=== PATIENT | female | born 1975 | race Two or more races ===

== ENCOUNTER 2025-01-23 04:52 | Emergency (ER) | payer MEDICAID, SELFPAY ==
[2025-01-23 04:56] VITALS: BMI 32.5
[2025-01-23 05:54] VITALS: BP 178/91; PULSE 70; RESP 16; TEMP 36.9; O2SAT 96
--- NOTE | 2025-01-23 06:35 | XR_ITS ---
Examination: PA lateral chest 2 views TECHNIQUE: Upright PA lateral chest 2 views Date and time: January 23, 2025 0645 hours INDICATIONS: Coughing beginning 4 days ago. FINDINGS: Normal heart size Lungs are clear. The osseous structures are intact IMPRESSION: No active disease
--- NOTE | 2025-01-23 06:37 | EDNOTE_ITS ---
Upper Respiratory Inf. RME/HPI General Chief Complaint: Flu Like Symptoms Stated Complaint: PAINFULL COUGH SORE THROAT Time Seen by Provider: 01/23/25 06:16 Source: patient Arrival date/time: 01/23/25 04:52 49-year-old female with history of hypertension presents to the emergency room with a chief complaint of coughing, a sore throat and phlegm x 3 days. Mode of arrival: ambulatory Limitations: no limitations Related Data Home Medications ?Medication ?Instructions ?Recorded ?Confirmed benazepril 40 mg tablet 40 mg PO DAILY 02/02/2101/18 hydrochlorothiazide 25 mg tablet 25 mg PO QAM 02/02/21 02/02/21 lansoprazole 15 mg capsule,delayed 30 mg PO DAILY 01/1802/02/21 release (Prevacid 24Hr) metformin 1,000 mg tablet 1,000 mg PO BID 02/02/21 tramadol 50 mg tablet 50 mg PO [id number] PRN Insomni a 02/02/21 02/02/21 Previous Rx's ?Medication ?Instructions ?Recorded ondansetron HCl 4 mg tablet 4 mg PO Q8H PRN nausea and 02/02/21 (Zofran) vomiting #14 tabs hydrocodone 5 mg-acetaminophen 325 1 tab PO Q8H pain # 14 tabs 06/05/21 mg tablet cyclobenzaprine 7.5 mg tablet 7.5 mg PO TID #10 tabs 0 09/24/22 meloxicam 15 mg tablet 15 mg PO QDAY #14 tabs 09/24 meclizine 25 mg tablet 25 mg PO TID PRN dizziness # 30 tabs 10/07/22 amoxicillin 875 mg-potassium 1 tab PO BID 7 days #14 t abs 01/23/25 clavulanate 125 mg tablet ondansetron 4 mg disintegrating 4 mg PO Q8H PRN nausea and 01/23/25 tablet vomiting #14 tabs Allergies Allergy/AdvReac Type Severity Reaction Status Date / Time No Known Allergies Allergy Verified 06/05/21 08:12 Review of Systems Review of Systems Systems Reviewed: All systems reviewed, normal except as documented Constitutional Constitutional: Reports system reviewed and no additional complaints, except as documented, Denies fatigue, Denies fever(s), Denies headache(s) and Denies weakness Eyes Eyes: Reports system reviewed and no additional complaints, except as documented, Denies blurry vision and Denies change in vision ENT Ears, Nose, Mouth, and Throat: Reports system reviewed and no additional complaints, except as documented, Denies otalgia, Denies headache(s), Denies nasal congestion, Reports sore throat, Denies throat swelling and Denies vertigo Cardiovascular Cardiovascular: Reports system reviewed and no additional complaints, except as documented, Denies chest pain, Reports dyspnea and Denies dyspnea on exertion Respiratory Respiratory: Reports system reviewed and no additional complaints, except as documented, Denies chest congestion, Reports cough, Reports dyspnea, Denies dyspnea on exertion and Denies wheezing Gastrointestinal Gastrointestinal: Reports system reviewed and no additional complaints, except as documented, Denies abdominal pain, Denies cramping, Denies nausea and Denies vomiting Genitourinary Genitourinary: Reports system reviewed and no additional complaints, except as documented Musculoskeletal Musculoskeletal: Reports system reviewed and no additional complaints, except as documented and Denies back pain Integumentary/Breasts Skin/Breast: Reports system reviewed and no additional complaints, except as documented and Denies wounds Neurologic Neurologic: Reports system reviewed and no additional complaints, except as documented, Denies confusion, Denies headache(s), Denies lack of coordination, Denies vertigo and Denies weakness Psychiatric Psychiatric: Reports system reviewed and no additional complaints, except as documented, Denies anxiety, Denies confusion, Denies depression, Denies paranoia, Denies suicidal ideation and Denies tactile hallucinations Endocrine Endocrine: Reports system reviewed and no additional complaints, except as documented and Denies fatigue Hematologic/Lymphatic Hematologic/Lymphatic: Reports system reviewed and no additional complaints, except as documented and Denies lymphadenopathy Allergic/Immunologic Allergic/Immunologic: Reports system reviewed and no additional complaints, except as documented, Denies throat swelling, Denies urticaria and Denies wheezing Past Medical History Past Medical History CARDIAC: Positive Hypertension; Negative Cardiac Disorders or Congestive Heart Failure RESPIRATORY: Negative Chronic Obstructive Pulmonary Disease (COPD) or Asthma GENITOURINARY: Negative Renal Disease ENDOCRINE: Positive Endocrine Disorders and Diabetes Mellitus Type 2; Negative Diabetes Mellitus Type 1 HEMATOLOGIC: Negative Sickle Cell Disease PSYCHO/SOCIAL: Positive Anxiety Social History SMOKING STATUS: Former smoker ED Exam General Limitations: Present no limitations General appearance: Present alert and in no apparent distress Head Head exam: Present atraumatic Eye Eye exam: Present normal appearance, PERRL and EOMI ENT ENT exam: Present normal exam, normal oropharynx and mucous membranes moist Expanded ENT Exam Mouth exam: Present normal external inspection Teeth exam: Present normal inspection Throat exam: Present tonsillar erythema; Absent R peritonsillar mass, L peritonsillar mass or muffled voice Neck Neck exam: Present normal inspection, full ROM and trachea midline Chest Chest inspection: Present normal inspection and symmetric chest wall rise Respiratory Respiratory exam: Present normal lung sounds bilaterally Cardiovascular Cardiovascular exam: Present regular rate, normal rhythm and normal heart sounds Abdominal Exam Abdominal exam: Present soft and normal bowel sounds Extremities Exam Extremities exam: Present normal inspection and full ROM Back Exam Back exam: Present normal inspection and full ROM Neurological Exam Neurological exam: Present alert, oriented X3 and CN II-XII intact Psychiatric Psychiatric exam: Present normal affect and normal mood Skin Skin exam: Present warm, dry, intact and normal color Course Quality Measures none Orders Category Date Time Status Bedside COVID-19 Antigen Test NOW Care 01/23/25 06:35 Active Bedside Influenza A&B Antigen Test NOW Care 01/23/25 06:35 Active XR chest 2V Stat Exams 01/23/25 06:35 Completed Vital Signs Vital signs: Vital Signs Temperature 98.5 F 01/23/25 05:54 Pulse Rate 70 01/23/25 05:54 Respiratory Rate 16 01/23/25 05:54 Blood Pressure 178/91 H 01/23/25 05:54 Pulse Oximetry (%) 96 01/23/25 05:54 Oxygen Delivery Method Room Air 01/23/25 05:54 O2 saturation 96% within normal limits Upper Respiratory Infection MDM Narrative MDM Narrative:: 49-year-old female with history of hypertension presents to the emergency room with a chief complaint of coughing, a sore throat and phlegm x 3 days. Patient is hemodynamically stable and in no apparent distress Physical examination shows clear bilateral lung sounds with no wheezing or any abnormal breath sounds. The patient is afebrile not tachycardic not tachypneic. ENT examination shows a erythemic posterior pharynx with no exudates. There is a cobblestone appearance to the back of the pharynx X-ray of the chest was completed and was negative for any pneumonia. COVID-19 and influenza were negative Patient was discharged with antibiotics for pharyngitis Patient was discharged and educated to follow-up with primary care provider in the next 24 to 48 hours and return to the emergency room for any evidence of worsening signs or symptoms Patient data External records reviewed:: [facility] previous records Clinical information provided by:: patient Social determinants that could affect healthcare access:: none Patient has the following chronic illnesses:: No chronic illness How is presenting disease/condition affected by chronic disease/condition?: no chronic disease Evaluation data The following diagnostics were reviewed and interpreted by me:: lab results and radiology exam(s) Lab and/or radiology exams considered but not ordered:: Labs and radiology exams considered and ordered Interpretation Summary: Chest x-ray-no pneumonic infiltrates Medications / Prescriptions Medications or Prescriptions considered but not ordered:: Rx given Medication administrations:: Rx given Consultations Consultation(s) initiated? (list below): No Diagnosis Upper Respiratory Differential Diagnosis: upper respiratory infection, sinusitis, viral infection, bronchitis, influenza, pharyngitis and other (Community-acquired pneumonia) Most likely diagnosis given after review of the tests above:: Pharyngitis Admission Indicated Admission indicated?: not indicated Admission Request Was there a request for admission?: No Disposition Plan Disposition Plan: Discharge Discharge Attestation Discharge Attestation: The patient and all family members were given an opportunity to ask questions and understood the discharge instructions. Discharge instructions specifically effects, indications for sooner follow up or return to the emergency department, and the expected course of current diagnosis. Patient condition: Stable Discharge Plan Plan Patient Disposition: HOME (Self Care) Discharge Disposition comment: Stable Prescriptions/Referrals Prescriptions/Med Rec: New ondansetron 4 mg tablet,disintegrating 4 mg PO Q8H PRN (Reason: nausea and vomiting) Qty: 14 0RF amoxicillin-pot clavulanate 875-125 mg tablet 1 tab PO BID 7 Days Qty: 14 0RF No Action hydrocodone-acetaminophen 5-325 mg tablet 1 tab PO Q8H MDD 3 Qty: 14 0RF tramadol 50 mg tablet 50 mg PO [id number] PRN (Reason: Insomnia) Patient Comments: TAKE 1 TABLET BY MOUTH EVERY 6 HOURS NEEDED metformin 1,000 mg tablet 1,000 mg PO BID Patient Comments: TAKE 1 TABLET BY MOUTH TWICE A DAY WITH MEALS lansoprazole [Prevacid 24Hr] 15 mg capsule,delayed release(DR/EC) 30 mg PO DAILY Patient Comments: TAKE 2 CAPSULES BY MOUTH EVERY DAY hydrochlorothiazide 25 mg tablet 25 mg PO QAM Patient Comments: TAKE 1 TABLET BY MOUTH EVERY DAY benazepril 40 mg tablet 40 mg PO DAILY Patient Comments: TAKE 1 TABLET BY MOUTH EVERY DAY ondansetron HCl [Zofran] 4 mg tablet 4 mg PO Q8H PRN (Reason: nausea and vomiting) Qty: 14 0RF cyclobenzaprine 7.5 mg tablet 7.5 mg PO TID Qty: 10 0RF meloxicam 15 mg tablet 15 mg PO QDAY Qty: 14 0RF meclizine 25 mg tablet 25 mg PO TID PRN (Reason: dizziness) Qty: 30 0RF Referrals: Eyal Odom MD [Primary Care Provider] - In 1 week Problem List Clinical Impression: Upper respiratory infection, Pharyngitis Patient/Caregiver Discharge Instructions Education Materials: ED Upper Resp Infec Abx Tx Additional Instructions: Please follow-up with your primary care provider in the next 24 to 48 hours Antibiotics are sent to your pharmacy please pick them up and take them as indicated Your chest x-ray was negative for any pneumonia For any evidence of worsening signs or symptoms return to the emergency room immediately Print Language: Cuban Stand Alone Forms: Talya Award Info., Work/School Release, Patient Portal Info Letter PA/ADVISORY SOFTWARE ENGINEER Supervising Physician PA/SAILAJA Supervising Physician: Dr. Ernandez
== END 2025-01-23 10:49 | disposition home or self-care (01) ==
PROVIDERS: Emergency Provider Emergency Medicine; PCP Family Medicine
DX: J02.9 Acute pharyngitis, unspecified (principal); Z87.891 Personal history of nicotine dependence
CPT/HCPCS: 71046; 87400; 87811; 99283

== ENCOUNTER 2025-03-17 21:35 | Emergency (ER) | payer MEDICAID, SELFPAY ==
[2025-03-17 21:37] VITALS: BMI 34.2
[2025-03-17 22:33] VITALS: BP 197/109; BP 210/104; PULSE 98; RESP 19; TEMP 37.2; O2SAT 99
--- NOTE | 2025-03-17 22:34 | EKG_ITS ---
[facility] Test Date: 2025-03-17 Pat Name: LISSETH PATRICIO Department: Room: - Gender: Female Technology Intern: : 1975 Requested By: Kendy Peters Order Number: [id number] Reading MD: Kendy Peters Measurements Intervals Holt Rate: 56 P: 19 WY: 162 QRS: -24 QRSD: 97 T: 21 QT: 427 QTc: 415 Interpretive Statements SINUS BRADYCARDIA BORDERLINE LEFT AXIS DEVIATION [QRS AXIS < -20] Compared to ECG 09/24/2022 11:23:44 Sinus rhythm no longer present /store/[id number].pdf
--- NOTE | 2025-03-17 22:35 | PD.EDABDPN ---
ED Abdominal Pain RME/HPI General Chief Complaint: Abdominal Pain Stated complaint: EPIGASTRIC PAIN,N/V Time seen by provider: 03/17/25 22:32 Arrival date/time: 03/17/25 21:35 Limitations: no limitations RME / HPI RME / HPI narrative: Dr. Garnett's Main ED Evaluation: 50yo female presents to the ED for complaints of epigastric pain, nausea, and vomiting for the last 2 hours. No radiation or migration. Patient states she recently restarted taking all of her medications. Patient reports associated shortness of breath when she vomits. he denies any diarrhea, fever, chills or any other associated symptoms. She denies any previous abdominal surgeries. Patient does smoke marijuana. Related Data Home Medications ?Medication ?Instructions ?Recorded ?Confirmed benazepril 40 mg tablet 40 mg PO DAILY 02/02/21 02/02/21 hydrochlorothiazide 25 mg tablet 25 mg PO QAM 02/02/21 02/02/21 lansoprazole 15 mg capsule,delayed 30 mg PO DAILY 02/02/21 02/02/21 release (Prevacid 24Hr) metformin 1,000 mg tablet 1,000 mg PO BID 02/02/21 02/02/21 tramadol 50 mg tablet 50 mg PO [id number] PRN Insomnia 02/02/21 02/02/21 Previous Rx's ?Medication ?Instructions ?Recorded ondansetron HCl 4 mg tablet 4 mg PO Q8H PRN nausea and 02/02/21 (Zofran) vomiting #14 tabs hydrocodone 5 mg-acetaminophen 325 1 tab PO Q8H pain #14 tabs 06/05/21 mg tablet cyclobenzaprine 7.5 mg tablet 7.5 mg PO TID #10 tabs 09/24/22 meloxicam 15 mg tablet 15 mg PO QDAY #14 tabs 09/24/22 meclizine 25 mg tablet 25 mg PO TID PRN dizziness #30 tabs 10/07/22 ondansetron 4 mg disintegrating 4 mg PO Q8H PRN nausea and 01/23/25 tablet vomiting #14 tabs ondansetron 4 mg disintegrating 4 mg PO Q8H PRN nausea and 03/18/25 tablet vomiting #10 tabs Allergies Allergy/AdvReac Type Severity Reaction Status Date / Time No Known Allergies Allergy Verified 03/17/25 21:36 Review of Systems Review of Systems Systems Reviewed: All systems reviewed, normal except as documented Past Medical History Past Medical History CARDIAC: Positive Hypertension; Negative Cardiac Disorders or Congestive Heart Failure RESPIRATORY: Negative Chronic Obstructive Pulmonary Disease (COPD) or Asthma GENITOURINARY: Negative Renal Disease ENDOCRINE: Positive Endocrine Disorders and Diabetes Mellitus Type 2; Negative Diabetes Mellitus Type 1 HEMATOLOGIC: Negative Sickle Cell Disease PSYCHO/SOCIAL: Positive Anxiety Social History SMOKING STATUS: Never smoker ED Exam General Limitations: Present no limitations General appearance: Present alert and in no apparent distress Head Head exam: Present atraumatic Eye Eye exam: Present normal appearance, PERRL and EOMI ENT ENT exam: Present normal exam, normal oropharynx and mucous membranes dry Neck Neck exam: Present normal inspection, full ROM and trachea midline Chest Chest inspection: Present normal inspection and symmetric chest wall rise Respiratory Respiratory exam: Present other (mild rhonchi bilaterally) Cardiovascular Cardiovascular exam: Present regular rate, normal rhythm and normal heart sounds Abdominal Exam Abdominal exam: Present soft and guarding; Absent rebound Extremities Exam Extremities exam: Present normal inspection and full ROM Back Exam Back exam: Present normal inspection and full ROM Neurological Exam Neurological exam: Present alert, oriented X3 and CN II-XII intact Psychiatric Psychiatric exam: Present normal affect and normal mood Skin Skin exam: Present warm, dry, intact and normal color; Absent diaphoresis Course Quality Measures none Orders Category Date Time Status CT Screening NOW Care 03/18/25 00:21 Completed EKG (ED ONLY) *Do not use* NOW Care 03/17/25 22:35 Completed IV [Insert IV] STAT Care 03/17/25 22:[address] abdomen pelvis w con Stat Exams 03/18/25 00:21 Completed EKG (ED Only) Stat Exams 03/17/25 22:34 Draft BNP [B-Type Natriuretic Peptide] Stat Lab 03/17/25 22:45 Completed CBC Stat Lab 03/17/25 22:45 Completed CMP [Comprehensive Metabolic Panel] Stat Lab 03/17/25 22:45 Completed Drug Screen,Urine Stat Lab 03/17/25 22:56 Completed HCG,Qualitative Serum Stat Lab 03/18/25 00:00 Completed Lipase Stat Lab 03/17/25 22:45 Completed Troponin I Stat Lab 03/17/25 22:45 Completed Urinalysis Stat Lab 03/17/25 22:56 Completed Ondansetron Odt [Zofran Odt] Med 03/17/25 22:37 Discontinued 4 mg PO X1 ONE Sodium Chloride 0.9% 1000 ml [Ns] 1,000 ml Med 03/17/25 22:37 Discontinued IV 999 mls/hr Vital Signs Vital signs: Vital Signs Temperature 99 F 03/17/25 22:33 Pulse Rate 98 03/17/25 22:33 Respiratory Rate 19 03/17/25 22:33 Blood Pressure 197/109 H 03/17/25 22:33 Pulse Oximetry (%) 99 03/17/25 22:33 Oxygen Delivery Method Room Air 03/17/25 22:33 Abdominal Pain MDM MDM Narrative MDM Narrative:: 50-year-old female presenting to the department with vomiting after marijuana use today On arrival the patient does have elevated blood pressure without headache, chest pain, or shortness of breath. The patient does have epigastric pain. EKG shortness of like to elevation Patient data External records reviewed:: [facility] previous records (Per chart review, patient was seen here on 01/23/25 for pharyngitis.) Clinical information provided by:: patient Social determinants that could affect healthcare access:: substance use (marijuana use) Patient has the following chronic illnesses:: DM, HTN How is presenting disease/condition affected by chronic disease/condition?: uneffected by Evaluation data The following diagnostics were reviewed and interpreted by me:: lab results and EKG tracing(s) Lab and/or radiology exams considered but not ordered:: none Interpretation Summary: WBC 17.8, Total Bilirubin 1.8, Troponin normal, BNP normal, Lipase 78, UA negative, UDS positive for marijuana, HCG negative. EKG done at 2238, sinus bradycardia, rate of 56, low voltage, ME: 162, QTc: 415, no STEMI, according to my interpretation. --------- Telerad Preliminary Report Draft Patient: LISSETH PATRICIO [facility]. Record#: [id number] Birthdate: 1975 Age/Sex: 50 / F Location: [facility] Attending Dr: Ordering Physician: Date of Service: Procedure(s): Accession Number(s): cc: ~ CT scan of the abdomen and pelvis with intravenous contrast (axial sections with sagittal and coronal reformats) March 18, 2025 at 0328 hours Clinical History: 50-year-old female with epigastric pain, vomiting. Comparison: None available at the time of this report. Findings: The lung bases are clear. The liver, gallbladder, spleen, kidneys and adrenals are unremarkable. Peripancreatic fat stranding. No pancreatic duct dilation. No collections. No evidence of bowel obstruction. The appendix is within normal limits. There is no mesenteric or retroperitoneal adenopathy. The urinary bladder is unremarkable. There is no free fluid or free air. The uterus and ovaries are within normal limits. Degenerative changes of the imaged portions of the spine. No acute fractures. Impression: Acute pancreatitis. No focal fluid collection. Report Electronically Signed By: Denis Reyes 03/18/2025 5:06:47 AM Medications / Prescriptions Medications or Prescriptions considered but not ordered:: none Medication administrations:: Medication Administration History Discontinued Medications Sodium Chloride (Ns) 1,000 mls @ 999 mls/hr IV .Q1H1M ONE Stop: 03/17/25 23:37 Last Infusion: 03/18/25 01:22 Dose: Infused Documented By: Admin: 03/18/25 00:03 Dose: 999 mls/hr Documented By: OA Ondansetron HCl (Ondansetron Odt 4 Mg Tabrap) 4 mg PO X1 ONE; Protocol Stop: 03/17/25 22:38 Last Admin: 03/17/25 22:47 Dose: 4 mg Documented By: CVL see above Consultations Consultation(s) initiated? (list below): No Diagnosis Differential diagnosis abdominal pain: diverticulitis, pancreatitis and other (cholelithiasis, cholecystitis) Most likely diagnosis given after review of the tests above:: see clinical impression below Admission Indicated Admission indicated?: indicated Explain why admission is indicated or not indicated:: Recommended inpatient management, but patient is tolerating PO fluids and her pain has resolved. Requests outpatient trial. Admission Request Was there a request for admission?: No Disposition Plan Disposition Plan: Discharge Discharge Attestation Discharge Attestation: The patient and all family members were given an opportunity to ask questions and understood the discharge instructions. Discharge instructions specifically effects, indications for sooner follow up or return to the emergency department, and the expected course of current diagnosis. Patient condition: Stable Discharge Plan Plan Patient Disposition: HOME (Self Care) Patient condition on transfer: Stable Prescriptions/Referrals Prescriptions/Med Rec: New ondansetron 4 mg tablet,disintegrating 4 mg PO Q8H PRN (Reason: nausea and vomiting) Qty: 10 0RF No Action hydrocodone-acetaminophen 5-325 mg tablet 1 tab PO Q8H MDD 3 Qty: 14 0RF tramadol 50 mg tablet 50 mg PO [id number] PRN (Reason: Insomnia) Patient Comments: TAKE 1 TABLET BY MOUTH EVERY 6 HOURS NEEDED metformin 1,000 mg tablet 1,000 mg PO BID Patient Comments: TAKE 1 TABLET BY MOUTH TWICE A DAY WITH MEALS lansoprazole [Prevacid 24Hr] 15 mg capsule,delayed release(DR/EC) 30 mg PO DAILY Patient Comments: TAKE 2 CAPSULES BY MOUTH EVERY DAY hydrochlorothiazide 25 mg tablet 25 mg PO QAM Patient Comments: TAKE 1 TABLET BY MOUTH EVERY DAY benazepril 40 mg tablet 40 mg PO DAILY Patient Comments: TAKE 1 TABLET BY MOUTH EVERY DAY ondansetron HCl [Zofran] 4 mg tablet 4 mg PO Q8H PRN (Reason: nausea and vomiting) Qty: 14 0RF cyclobenzaprine 7.5 mg tablet 7.5 mg PO TID Qty: 10 0RF meloxicam 15 mg tablet 15 mg PO QDAY Qty: 14 0RF ondansetron 4 mg tablet,disintegrating 4 mg PO Q8H PRN (Reason: nausea and vomiting) Qty: 14 0RF meclizine 25 mg tablet 25 mg PO TID PRN (Reason: dizziness) Qty: 30 0RF Referrals: No Primary/Family,Physician [Primary Care Provider] - In 1 week Kendy Burgos MD [Emergency Provider] - 03/18/25 6:30 pm (Tonight for a recheck with Dr. Osborne) Problem List Clinical Impression: Pancreatitis Patient/Caregiver Discharge Instructions Diet Instructions: Clear liquid diet. Education Materials: ED Pancreatitis Additional Instructions: Text me at [phone], to let me know how you are doing tonight. However I would rather you come in for recheck tonight at 8:30 PM. Please avoid anything but a clear liquid diet.. Return immediately for increasing pain, fever, vomiting or any other concerns. I will give you some antinausea pills that you can take if needed. Print Language: Maori Stand Alone Forms: Talya Award Info., Patient Portal Info Letter MD Attestation MD Attestation The patient did text me tonight to let me know that she is having no pain and not vomiting. The patient will not be coming in for reevaluation she will follow-up with her primary care physician.
[2025-03-17] MEDS: ONDANSETRON ODT 4 MG TABRAP PO (22:47)
[2025-03-17 22:57] LABS: Basophils # (Auto) 0.1 Thou/mm3 (0.0-0.2); Basophils % (Auto) 1 % (0-2.5); Eosinophils # (Auto) 0.3 Thou/mm3 (0.0-0.5); Eosinophils % (Auto) 2 % (0-10); Hematocrit 38.6 % (36.0-46.0); Hemoglobin 13.8 g/dL (12.0-16.0); Immature Granulocytes Auto 0.12 Thou/mm3 (0.00-0.00); Lymphocytes # (Auto) 2.3 Thou/mm3 (1.0-4.8); Lymphocytes % (Auto) 13 % (10-50); Mean Corpuscular HGB Conc 35.8 g/dl (31.0-37.0); Mean Corpuscular Hemoglobin 32.5 pg (25.0-35.0); Mean Corpuscular Volume 91 fL (80-100); Monocytes # (Auto) 0.8 Thou/mm3 (0.0-0.8); Monocytes % (Auto) 5 % (0-12); Neutrophils # (Auto) 14.1 Thou/mm3 (1.8-7.7); Neutrophils % (Auto) 79 % (37-80); Nucleated Red Blood Cell # 0.00 Thou/mm3 (0.00-0.00); Nucleated Red Blood Cell % 0 /100 WBC (0); Platelet Count 242 Thou/mm3 (140-440); RDW Standard Deviation 39.3 fL (36.4-46.3); Red Blood Count 4.24 Miln/mm3 (4.00-5.20); White Blood Count 17.8 Thou/mm3 (3.6-11.0)
[2025-03-17 22:58] LABS: Collection Type, Urine Voided
[2025-03-17 23:00] LABS: Bilirubin,Urine Negative (Negative); Blood,Urine Negative (Negative); Clarity,Urine Clear (Clear/Hazy); Color,Urine Yellow (Lt Yel-Yel); Glucose, Urine Negative (Negative); Ketones,Urine 1+ (Negative); Leukocyte Esterase,Urine Positive (Negative); Nitrite,Urine Negative (Negative); PH,Urine 5.5 (5.0-7.0); Protein,Urine 1+ (Neg - Trace); RBC,Urine 2 /hpf (0-3); Specific Gravity,Urine 1.035 (1.001-1.035); Squamous Epithelial Cell,Urine 2 /hpf (0-5); Urobilinogen,Urine Negative mg/dL (0.0-1.0); WBC,Urine 4 /hpf (0-5)
[2025-03-17 23:08] LABS: Amphetamine/Methamp Scrn,U Negative (Negative); Barbiturate Screen,Urine Negative (Negative); Benzodiazepines Screen,Urine Negative (Negative); Benzoylecgonine Screen, Ur Negative (Negative); Fentanyl Screen,Urine Negative (Negative); Opiate Screen,Urine Negative (Negative); THC Screen,Urine Positive (Negative)
[2025-03-17 23:19] LABS: B-Type Natriuretic Peptide < 20 pg/mL (0-100)
[2025-03-17 23:20] LABS: Alanine Aminotransferase 11 U/L (10-49); Albumin, Serum 4.9 gm/dL (3.5-5.0); Albumin/Globulin Ratio 1.6 (1.2-2.2); Alkaline Phosphatase 109 U/L (46-116); Anion Gap 10 (7-16); Aspartate Amino Transferase 17 U/L (0-34); BUN/Creatinine Ratio 17 Ratio (12-20); Bilirubin,Total 1.8 mg/dL (0.3-1.2); Blood Urea Nitrogen 17 mg/dL (9-23); Calcium 9.9 mg/dL (8.3-10.6); Calcium (Corrected) 9.9 mg/dL (8.5-10.1); Carbon Dioxide 27.0 mMol/L (20.0-31.0); Chloride 103 mMol/L (98-107); Creatinine (Component) 1.0 mg/dL (0.6-1.3); Estimated Creatinine Clearance 69.5 mL/min (>60); Globulin 3.0 gm/dL (2.3-3.5); Glucose 183 mg/dL (74-106); Lipase 78 U/L (12-53); Osmolality,Calculated 285 (275-295); Potassium 3.8 mMol/L (3.4-5.1); Sodium 140 mMol/L (136-145); Total Protein 7.9 gm/dL (5.7-8.2); Troponin I < 0.020 ng/mL (0.0-0.045); eGFR > 60 See Note
[2025-03-18] MEDS: SODIUM CHLORIDE 0.9% 1000 ML 1,000 ML 999 ML IV (00:03)
--- NOTE | 2025-03-18 00:21 | XR_ITS ---
Examination: CT abdomen with intravenous contrast CT pelvis with intravenous contrast 2-D coronal reconstructions 2-D sagittal reconstructions Date and time of exam:March 18, 2025, 1528 hours, comparison February 02, 2021 INDICATIONS: Onset nausea vomiting epigastric pain beginning 2 hours ago. CTDI: vol (mGy) 10.2 DLP: (mGycm) 5 56 Technique: Multiple axial sections of the abdomen and pelvis have been obtained. 64 slice high-resolution scanner used. 3 mm axial sections have been obtained, post intravenous injection of 60 cc [id number] 2-D sagittal, coronal reconstructions obtained. Low dose protocols were performed. One or more of the following dose reduction techniques were used; automated exposure control, adjustment of the mA and/or KV according to patient size, use of iterative reconstruction technique. Findings: No focal liver or splenic lesions No definite gallstones Edema surrounding the pancreatic head No renal or ureteral calculi, no hydronephrosis Normal appendix No bowel obstruction No diverticulitis Anteverted uterus Urinary bladder is intact Moderate disc narrowing L5-S1 IMPRESSION: Acute pancreatitis, no pseudocyst
[2025-03-18 02:04] LABS: HCG,Qualitative Serum Negative
[2025-03-18 02:12] VITALS: BP 185/94; PULSE 53; RESP 19; TEMP 36.9; O2SAT 98
--- NOTE | 2025-03-18 05:07 | PRELIM_ITS ---
CT scan of the abdomen and pelvis with intravenous contrast (axial sections with sagittal and coronal reformats) March 18, 2025 at 0328 hours Clinical History: 50-year-old female with epigastric pain, vomiting. Comparison: None available at the time of this report. Findings: The lung bases are clear. The liver, gallbladder, spleen, kidneys and adrenals are unremarkable. Peripancreatic fat stranding. No pancreatic duct dilation. No collections. No evidence of bowel obstruction. The appendix is within normal limits. There is no mesenteric or retroperitoneal adenopathy. The urinary bladder is unremarkable. There is no free fluid or free air. The uterus and ovaries are within normal limits. Degenerative changes of the imaged portions of the spine. No acute fractures. Impression: Acute pancreatitis. No focal fluid collection. Report Electronically Signed By: Denis Reyes 03/18/2025 5:06:47 AM [EST]
[2025-03-18 05:39] VITALS: RESP 16
== END 2025-03-18 05:40 | disposition home or self-care (01) ==
PROVIDERS: Emergency Provider Emergency Medicine
DX: K85.90 Acute pancreatitis without necrosis or infection, unspecified (principal); R06.02 Shortness of breath
CPT/HCPCS: 36415; 74177; 80053; 80307; 81001; 81025; 83690; 83880; 84484; 84702; 84703; 85025; 93005; 99283; A4649; J7030; Q0162; Q9967

== ENCOUNTER 2025-03-22 06:00 | Emergency (ER) | payer MEDICAID, SELFPAY ==
[2025-03-22 06:02] VITALS: BMI 31.6
[2025-03-22 06:09] VITALS: BP 149/97; PULSE 79; RESP 18; TEMP 36.7; O2SAT 97
--- NOTE | 2025-03-22 06:34 | XR_ITS ---
Examination: CT abdomen and pelvis without contrast. Coronal 3-D reconstructions. Sagittal 2-D reconstructions. Date and time of exam:March 22, 2025, 0648 hours Comparison March 18, 2025 INDICATIONS: Upper abdominal pain beginning 2 days ago, acute pancreatitis on CT abdomen and pelvis March 18, 2025 CTDI: vol (mGy): 8.78. DLP: (mGycm): 155. Technique: Axial images of the abdomen have been obtained, 3 mm slice thickness Intravenous contrast material has not been administered. Low dose protocols were performed. One or more of the following dose reduction techniques were used; automated exposure control, adjustment of the mA and/or KV according to patient size, use of iterative reconstruction technique. Findings: Fatty infiltration throughout the liver no focal liver or splenic lesions No gallstones Edema surrounding the pancreas, no pseudocyst No adrenal mass Moderate renal scar formation Aorta normal size Normal appendix Mild small bowel ileus No obstruction Anteverted uterus Intact urinary bladder Moderate disc narrowing L5-S1 [id number]-[id number] bilateral hip osteoarthritis IMPRESSION: Acute pancreatitis, no pseudocyst
--- NOTE | 2025-03-22 06:36 | PD.EDRME ---
Rapid Medical Screening Exam RME Arrival date/time: 03/22/25 06:00 50-year-old female with a history of hypertension, type 2 diabetes, pancreatitis presents to the emergency room with a chief complaint of 10 out of 10 epigastric pain that radiates to the left upper quadrant. Patient was seen here on 03/17/2025 and was told she has pancreatitis. I have greeted and performed a focused initial assessment of this patient. A comprehensive ED assessment and evaluation of the patient, analysis of all test results, and completion of the medical decision making process will be conducted by additional ED providers. Chief Complaint: Abdominal Pain Vital signs: Vital Signs Temperature 98.1 F 03/22/25 06:09 Pulse Rate 79 03/22/25 06:09 Respiratory Rate 18 03/22/25 06:09 Blood Pressure 149/97 H 03/22/25 06:09 Pulse Oximetry (%) 97 03/22/25 06:09 Oxygen Delivery Method Room Air 03/22/25 06:09 Vital signs reviewed by provider: Yes
[2025-03-22] MEDS: HYDROcodone/APAP 5/325 TABLET 1 TAB PO (07:14)
[2025-03-22] MEDS: ONDANSETRON ODT 4 MG TABRAP PO (07:14)
[2025-03-22 07:16] LABS: Basophils # (Auto) 0.1 Thou/mm3 (0.0-0.2); Basophils % (Auto) 1 % (0-2.5); Eosinophils # (Auto) 0.5 Thou/mm3 (0.0-0.5); Eosinophils % (Auto) 3 % (0-10); Hematocrit 41.3 % (36.0-46.0); Hemoglobin 14.8 g/dL (12.0-16.0); Immature Granulocytes Auto 0.11 Thou/mm3 (0.00-0.00); Lymphocytes # (Auto) 3.4 Thou/mm3 (1.0-4.8); Lymphocytes % (Auto) 22 % (10-50); Mean Corpuscular HGB Conc 35.8 g/dl (31.0-37.0); Mean Corpuscular Hemoglobin 32.7 pg (25.0-35.0); Mean Corpuscular Volume 91 fL (80-100); Monocytes # (Auto) 0.9 Thou/mm3 (0.0-0.8); Monocytes % (Auto) 6 % (0-12); Neutrophils # (Auto) 10.4 Thou/mm3 (1.8-7.7); Neutrophils % (Auto) 68 % (37-80); Nucleated Red Blood Cell # 0.00 Thou/mm3 (0.00-0.00); Nucleated Red Blood Cell % 0 /100 WBC (0); Platelet Count 248 Thou/mm3 (140-440); RDW Standard Deviation 39.7 fL (36.4-46.3); Red Blood Count 4.52 Miln/mm3 (4.00-5.20); White Blood Count 15.3 Thou/mm3 (3.6-11.0)
--- NOTE | 2025-03-22 07:34 | PC.NURSE ---
PT REPORTS 7/10 ABD PAIN, MEDICATED W/NORCO AND ZOFRAN. PT TALKING ON CELLPHONE, VSS ON TELE. PT AWARE URINE IS NEEDED, AND WE ARE PENDING RESULTS. WILL CONT W/POC.
[2025-03-22 07:45] LABS: Alanine Aminotransferase 12 U/L (10-49); Albumin, Serum 5.2 gm/dL (3.5-5.0); Albumin/Globulin Ratio 1.7 (1.2-2.2); Alkaline Phosphatase 110 U/L (46-116); Anion Gap 12 (7-16); Aspartate Amino Transferase 17 U/L (0-34); BUN/Creatinine Ratio 8 Ratio (12-20); Bilirubin,Total 2.7 mg/dL (0.3-1.2); Blood Urea Nitrogen 9 mg/dL (9-23); Calcium 10.3 mg/dL (8.3-10.6); Calcium (Corrected) 10.3 mg/dL (8.5-10.1); Carbon Dioxide 27.0 mMol/L (20.0-31.0); Chloride 102 mMol/L (98-107); Creatinine (Component) 1.1 mg/dL (0.6-1.3); Estimated Creatinine Clearance 60.7 mL/min (>60); Globulin 3.0 gm/dL (2.3-3.5); Glucose 189 mg/dL (74-106); Lipase 95 U/L (12-53); Osmolality,Calculated 284 (275-295); Potassium 3.6 mMol/L (3.4-5.1); Sodium 141 mMol/L (136-145); Total Protein 8.2 gm/dL (5.7-8.2); eGFR > 60 See Note
--- NOTE | 2025-03-22 07:50 | PD.EDABDPN ---
ED Abdominal Pain RME/HPI General Chief Complaint: Abdominal Pain Stated complaint: UPPER ABD PAIN Time seen by provider: 03/22/25 07:38 Arrival date/time: 03/22/25 06:00 Limitations: no limitations RME / HPI RME / HPI narrative: 03/22/25 06:00 50-year-old female with a history of hypertension, type 2 diabetes, pancreatitis presents to the emergency room with a chief complaint of 10 out of 10 epigastric pain that radiates to the left upper quadrant. Patient was seen here on 03/17/2025 and was told she has pancreatitis. I have greeted and performed a focused initial assessment of this patient. A comprehensive ED assessment and evaluation of the patient, analysis of all test results, and completion of the medical decision making process will be conducted by additional ED providers. DR. CRUTIS MAIN ED EVALUATION: 50 year old female with history of hypertension and type II diabetes presents to the ED for evaluation of abdominal pain today. Reportedly pain began ~ 5 days ago and described as burning in sensation, located most to epigastric and left upper quadrant regions. Reports she was evaluated here 5 days ago and diagnosed with pancreatitis and discharged home with instructions to return if pain worsened. Denies fevers, chills, chest pain, cough, shortness of breath, vomiting, diarrhea, constipation, or urinary symptoms. Family hx: Thyroid CA, HTN, DM Related Data Home Medications ?Medication ?Instructions ?Recorded ?Confirmed benazepril 40 mg tablet 40 mg PO DAILY 02/02/21 02/02/21 hydrochlorothiazide 25 mg tablet 25 mg PO QAM 02/02/21 02/02/21 lansoprazole 15 mg capsule,delayed 30 mg PO DAILY 02/02/21 02/02/21 release (Prevacid 24Hr) metformin 1,000 mg tablet 1,000 mg PO BID 02/02/21 02/02/21 tramadol 50 mg tablet 50 mg PO [id number] PRN Insomnia 02/02/21 02/02/21 Previous Rx's ?Medication ?Instructions ?Recorded ondansetron HCl 4 mg tablet 4 mg PO Q8H PRN nausea and 02/02/21 (Zofran) vomiting #14 tabs hydrocodone 5 mg-acetaminophen 325 1 tab PO Q8H pain #14 tabs 21 mg tablet cyclobenzaprine 7.5 mg tablet 7.5 mg PO TID #10 tabs 09/24/22 meloxicam 15 mg tablet 15 mg PO QDAY #14 tabs 09/24/22 meclizine 25 mg tablet 25 mg PO TID PRN dizziness #30 tabs 10/07/22 ondansetron 4 mg disintegrating 4 mg PO Q8H PRN nausea and 01/23/25 tablet vomiting #14 tabs ondansetron 4 mg disintegrating 4 mg PO Q8H PRN nausea and 03/18/25 tablet vomiting #10 tabs Allergies Allergy/AdvReac Type Severity Reaction Status Date / Time No Known Allergies Allergy Verified 03/22/25 06:08 Review of Systems Review of Systems Systems Reviewed: All systems reviewed, normal except as documented Past Medical History Past Medical History CARDIAC: Positive Cardiac Disorders and Hypertension ENDOCRINE: Positive Endocrine Disorders and Diabetes Mellitus Type 2 PSYCHO/SOCIAL: Positive Anxiety Social History SMOKING STATUS: Never smoker ED Exam General Limitations: Present no limitations General appearance: Present alert and in no apparent distress Head Head exam: Present atraumatic, normocephalic and normal inspection Eye Eye exam: Present normal appearance, PERRL and EOMI ENT ENT exam: Present normal exam, normal oropharynx and mucous membranes moist Neck Neck exam: Present normal inspection, full ROM and trachea midline Chest Chest inspection: Present normal inspection and symmetric chest wall rise Respiratory Respiratory exam: Present normal lung sounds bilaterally Cardiovascular Cardiovascular exam: Present regular rate and normal rhythm Abdominal Exam Abdominal exam: Present soft and normal bowel sounds Extremities Exam Extremities exam: Present normal inspection and full ROM Neurological Exam Neurological exam: Present alert, oriented X3 and CN II-XII intact Psychiatric Psychiatric exam: Present normal affect and normal mood Skin Skin exam: Present warm, dry, intact and normal color Course Quality Measures none Orders Category Date Time Status CT abdomen pelvis wo con Stat Exams 03/22/25 06:34 Completed CBC Stat Lab 03/22/25 06:57 Completed CMP [Comprehensive Metabolic Panel] Stat Lab 03/22/25 06:57 Completed HCG Qualitative,Urine Stat Lab 03/22/25 06:34 Ordered Lipase Stat Lab 03/22/25 06:57 Completed UA [Urinalysis] Stat Lab 03/22/25 06:34 Ordered Urine Culture Stat Lab 03/22/25 06:34 Ordered HYDROcodone*/APAP 5/325 [[place] 5/325] Med 03/22/25 06:35 Discontinued 1 tab PO X1 ONE Ondansetron Odt [Zofran Odt] Med 03/22/25 06:35 Discontinued 4 mg PO X1 ONE Vital Signs Vital signs: Vital Signs Temperature 98.1 F 03/22/25 06:09 Pulse Rate 79 03/22/25 06:09 Respiratory Rate 18 03/22/25 06:09 Blood Pressure 149/97 H 03/22/25 06:09 Pulse Oximetry (%) 97 03/22/25 06:09 Oxygen Delivery Method Room Air 03/22/25 06:09 Pulse ox is 97% on room air which is adequate. Abdominal Pain MDM MDM Narrative MDM Narrative:: Tayler Dugan am scribing for and in the presence of Dr. Curtis. 50 year old female with history of hypertension and type II diabetes presents to the ED for evaluation of abdominal pain today. Pain described as burning in sensation, located most to epigastric and left upper quadrant regions. Reports she was evaluated here 5 days ago and diagnosed with pancreatitis and discharged home with instructions to return if pain worsened. States the pain has not improved, prompting return. Lipase performed 5 days ago was 78 and today 95. Patient was given [place] with improvement. CT today is unchanges from CT performed 5 days ago which shows pancreatitis and mild swelling adjacent to the pancreas. Patient was advised to follow up with PCP for referral to GI to further evalution edema. Patient data External records reviewed:: [facility] previous records (I reviewed ED visit on 03/17/2025 ) Clinical information provided by:: patient Social determinants that could affect healthcare access:: substance use (Marijuana ) Patient has the following chronic illnesses:: HTN, DM How is presenting disease/condition affected by chronic disease/condition?: exacerbated by Evaluation data The following diagnostics were reviewed and interpreted by me:: lab results Lab and/or radiology exams considered but not ordered:: None Interpretation Summary: Ordering Physician: Eliseo Barr Date of Service: 03/22/25 Procedure(s): CT abdomen pelvis wo con Accession Number(s): [id number] cc: Eliseo Barr; Eyal Odom MD; Panda Lazar MD~ Examination: CT abdomen and pelvis without contrast. Coronal 3-D reconstructions. Sagittal 2-D reconstructions. Date and time of exam:March 22, 2025, 0648 hours Comparison March 18, 2025 INDICATIONS: Upper abdominal pain beginning 2 days ago, acute pancreatitis on CT abdomen and pelvis March 18, 2025 CTDI: vol (mGy): 8.78. DLP: (mGycm): 155. Technique: Axial images of the abdomen have been obtained, 3 mm slice thickness Intravenous contrast material has not been administered. Low dose protocols were performed. One or more of the following dose reduction techniques were used; automated exposure control, adjustment of the mA and/or KV according to patient size, use of iterative reconstruction technique. Findings: Fatty infiltration throughout the liver no focal liver or splenic lesions No gallstones Edema surrounding the pancreas, no pseudocyst No adrenal mass Moderate renal scar formation Aorta normal size Normal appendix Mild small bowel ileus No obstruction Anteverted uterus Intact urinary bladder Moderate disc narrowing L5-S1 [id number] bilateral hip osteoarthritis IMPRESSION: Acute pancreatitis, no pseudocyst Dictated By: Panda Lazar MD Signed By: <Electronically signed by Panda Lazar MD in OV> 03/22/25 0710 Medications / Prescriptions Medications or Prescriptions considered but not ordered:: None Medication administrations:: Medication Administration History Discontinued Medications Hydrocodone Bitart/Acetaminophen (Hydrocodone/Apap 5/325 Tablet) 1 tab PO X1 ONE Stop: 03/22/25 06:36 Last Admin: 03/22/25 07:14 Dose: 1 tab Documented By: ZACHARY Ondansetron HCl (Ondansetron Odt 4 Mg Tabrap) 4 mg PO X1 ONE; Protocol Stop: 03/22/25 06:36 Last Admin: 03/22/25 07:14 Dose: 4 mg Documented By: ZACHARY See above Consultations Consultation(s) initiated? (list below): No Diagnosis Differential diagnosis abdominal pain: abdominal pain, pancreatitis and other (gastritis ) Most likely diagnosis given after review of the tests above:: Abdominal pain Edema adjacent to pancreas Diabetes Admission Indicated Admission indicated?: not indicated Admission Request Was there a request for admission?: No Disposition Plan Disposition Plan: Discharge Discharge Attestation Discharge Attestation: The patient and all family members were given an opportunity to ask questions and understood the discharge instructions. Discharge instructions specifically effects, indications for sooner follow up or return to the emergency department, and the expected course of current diagnosis. Patient condition: Stable Discharge Plan Plan Patient Disposition: HOME (Self Care) Prescriptions/Referrals Prescriptions/Med Rec: No Action hydrocodone-acetaminophen 5-325 mg tablet 1 tab PO Q8H MDD 3 Qty: 14 0RF tramadol 50 mg tablet 50 mg PO [id number] PRN (Reason: Insomnia) Patient Comments: TAKE 1 TABLET BY MOUTH EVERY 6 HOURS NEEDED metformin 1,000 mg tablet 1,000 mg PO BID Patient Comments: TAKE 1 TABLET BY MOUTH TWICE A DAY WITH MEALS lansoprazole [Prevacid 24Hr] 15 mg capsule,delayed release(DR/EC) 30 mg PO DAILY Patient Comments: TAKE 2 CAPSULES BY MOUTH EVERY DAY hydrochlorothiazide 25 mg tablet 25 mg PO QAM Patient Comments: TAKE 1 TABLET BY MOUTH EVERY DAY benazepril 40 mg tablet 40 mg PO DAILY Patient Comments: TAKE 1 TABLET BY MOUTH EVERY DAY ondansetron HCl [Zofran] 4 mg tablet 4 mg PO Q8H PRN (Reason: nausea and vomiting) Qty: 14 0RF cyclobenzaprine 7.5 mg tablet 7.5 mg PO TID Qty: 10 0RF meloxicam 15 mg tablet 15 mg PO QDAY Qty: 14 0RF ondansetron 4 mg tablet,disintegrating 4 mg PO Q8H PRN (Reason: nausea and vomiting) Qty: 14 0RF meclizine 25 mg tablet 25 mg PO TID PRN (Reason: dizziness) Qty: 30 0RF ondansetron 4 mg tablet,disintegrating 4 mg PO Q8H PRN (Reason: nausea and vomiting) Qty: 10 0RF Referrals: Eyal Odom MD [Primary Care Provider] - In 1 week Problem List Clinical Impression: Abdominal pain, Diabetes Patient/Caregiver Discharge Instructions Education Materials: Abdominal Pain, ED Diabetes- Overview Additional Instructions: Follow-up with your primary care doctor in 1-2 days for referral to GI to further evaluate the edema adjacent to pancreas. You can return to the emergency department sooner if symptoms worsen or if you notice any new, concerning issues. Continue your usual medications. Print Language: [place] Stand Alone Forms: [employer]a Award Info., Patient Portal Info Letter
[2025-03-22 08:16] VITALS: BP 153/92; PULSE 79; RESP 16; TEMP 36.9; O2SAT 97
[2025-03-22 09:15] VITALS: BP 138/95; PULSE 62; RESP 18; TEMP 36.7; O2SAT 96
== END 2025-03-22 09:18 | disposition home or self-care (01) ==
PROVIDERS: Nurse Practitioner Family; Emergency Provider Family Medicine; PCP Family Medicine
DX: K85.90 Acute pancreatitis without necrosis or infection, unspecified (principal); E11.9 Type 2 diabetes mellitus without complications; Z79.84 Long term (current) use of oral hypoglycemic drugs
CPT/HCPCS: 36415; 74176; 80053; 81001; 81025; 83690; 85025; 87086; 99283; Q0162; A9270